=== PATIENT | male | born 1980 | race African-American/Black ===

== ENCOUNTER 2016-04-08 10:52 | Emergency (ER) | payer OTHER ==
--- NOTE | ~2016-04-08 | US113 ---
[facility] A Service of [facility] RADIOLOGY TEXT RESULTS PATIENT: BRIEN HOLM LOCATION: CFTX : 82 UNIT #: [id number] AGE: [address]: Conchita Pompa APRN SEX: M ORDER DR: [id number] [facility] [address] [place], [place] [address] [id number] E MR#: [id number] Acc #: [id number] NAME: BRIEN HOLM : 1980 SEX: M STUDY DATE/TIME: 04/08/2016 11:07 UNIT: [facility] ROOM: STUDY DESCRIPTION: US Scrotal Duplex Complete Attending Physician: Conchita Pompa A.P.R.N. Ordering Physician: Ed Farshad Carter M.D. Primary Care Physician: No Primary Care Physician MEDICAL IMAGING REPORT This report is preliminary unless electronic signature is present EXAM Bilateral scrotal ultrasound with Doppler imaging. DATE 04/08/2016 at 11:07 HISTORY Left testicular pain for 2 weeks after lifting weights. COMPARISON Bilateral scrotal ultrasound with Doppler imaging 06/15/2012. FINDINGS The right testicle measures 4.8 x 2.9 x 1.3 cm. The left testicle measures 3.5 x 2.0 x 4.7 cm. Extensive bilateral testicular microlithiasis is redemonstrated with small bilateral intratesticular cysts measuring less than 5 mm. No suspicious solid testicular mass is identified. Normal color flow is documented to each testicle. Small bilateral scrotal hydroceles are present. Previously described small left scrotal varicocele is not evident on this examination. Probable tiny left epididymal cyst or spermatocele measures 2 mm. IMPRESSION 1. Small bilateral scrotal hydroceles. No varicocele is seen on today's examination. 2. Extensive bilateral testicular microlithiasis and multiple small less than 5 mm intratesticular cysts. The features of testicular microlithiasis are thought to be similar to the 2013 examination. No testicular mass lesion is seen. 3. Probable 2 mm left epididymal cyst or spermatocele. [facility] A Service of [facility] RADIOLOGY TEXT RESULTS PATIENT: BRIEN HOLM LOCATION: [facility] : 82 UNIT #: [id number] AGE: [address]: Conchita Pompa APRN SEX: M ORDER DR: Dictated by... Nela Chapa M.D. THIS IS AN ELECTRONICALLY VERIFIED REPORT Nela Chapa M.D. at 04/10/2016 7:02 PM [facility]/javier TD: 04/08/2016 14:58 JOB #: [id number] MEDICAL IMAGING REPORT COPY
[~2016-04-08 10:52] MED LIST: ALBUTEROL17 GM INH; ANUSOL SUPP1 SUPP PR; CIPRO250 MG PO; FLEXERIL10 MG PO; KEFLEX500 MG PO; LORTAB 5/500 TA1 TA1 PO; MOTRIN400 MG PO; NUPERCAINAL 1%30 GM EXT; ORUDIS75 M1 PO; PREDNISONE PO; TESSALON200 MG PO; VICODIN 5/1 TAB 5/50 PO; VOLTAREN75 MG PO
[2016-04-08 11:02] LABS: URINE SOURCE CLEAN CATCH
[2016-04-08 11:06] LABS: URINE APPEARANCE CLEAR; URINE BILIRUBIN NEG (NEG); URINE BLOOD NEG (NEG); URINE COLOR YELLOW; URINE GLUCOSE NEG (NEG); URINE KETONE NEG (NEG); URINE LEUKOCYTE ESTERASE NEG (NEG); URINE NITRATE NEG (NEG); URINE PH 6.5 (5-8); URINE PROTEIN NEG (NEG); URINE SPECIFIC GRAVITY 1.023 (1.003-1.035); URINE UROBILINOGEN 0.2 MG/DL (NEG)
[2016-04-08 11:17] LABS: CULTURE INDICATED? NO; URINE TRICHOMONAS NEGATIVE
[2016-04-12 16:17] LABS: CHLAMYDIA TRACH Not Detected (Not Detected); N GONOR Not Detected (Not Detected)
== END 2016-04-08 13:17 | disposition home or self-care (01) ==
LOC: CFTX 10:52
PROVIDERS: Nurse Practitioner
DX: N50.812 Left testicular pain (principal); J45.909 Unspecified asthma, uncomplicated; F17.210 Nicotine dependence, cigarettes, uncomplicated; Z98.890 Other specified postprocedural states
CPT/HCPCS: 81003; 87491; 87591; 93975; 99284

== ENCOUNTER 2016-08-27 22:30 | Emergency (ER) | payer OTHER ==
[2016-08-28 05:28] LABS: ACETAMINOPHEN <10 ug/mL; ALCOHOL BLOOD <5 mg/dL ([0,])
== END 2016-08-29 13:39 ==
LOC: CED 22:30
PROVIDERS: Emergency Medicine
DX: S61.512A Laceration without foreign body of left wrist, initial encounter (principal); R45.851 Suicidal ideations; Z23 Encounter for immunization; W26.0XXA Contact with knife, initial encounter; Y92.9 Unspecified place or not applicable
CPT/HCPCS: 12004; 90471; 90715; 99285; G0480

== ENCOUNTER 2016-08-28 | Inpatient (IN) | payer OTHER ==
[~2016-08-28] VITALS: Ht 185.4 cm; Wt 81.6 kg
--- NOTE | ~2016-08-28 | HP ---
Unit #: [id number] #: [id number] Patient: BRIEN HOLM [id number] [facility] [address] [place] [address] [id number] I MR#: [id number] NAME: BRIEN HOLM ROOM: P204 Age: 36 Sex: M Admission Date: 08/28/2016 : 1980 Attending Physician: Timothy Gunn M.D. Admitting Physician: Timothy Gunn M.D. Primary Care Physician: Primary Care Physician No HISTORY AND PHYSICAL HISTORY AND PHYSICAL COMPLETED 08/29/2016 HISTORY OF PRESENT ILLNESS Brien is a 36-year-old male, admitted on 08/28/[address] [place] [address] for attempted suicide. He cut his wrist. PAST MEDICAL HISTORY Asthma. PAST SURGICAL HISTORY Left shoulder dislocation with a surgical repair. SOCIAL HISTORY He smokes one and one half packs of cigarettes daily. History of alcohol use and history of illegal drug use. He is currently single and living alone. FAMILY HISTORY Noncontributory. REVIEW OF SYSTEMS CONSTITUTIONAL: No fever or chills. HEENT: Denies any sore throat, ear pain or runny nose. CARDIOVASCULAR: Denies chest pain, irregular heart rhythm or palpitations. CHEST: Shortness of air with exertion and wheezing. GASTROINTESTINAL: Denies nausea, vomiting, diarrhea or chronic constipation. ENDOCRINE: Denies history of increased thirst or urination. No recent significant weight loss or gain. GENITOURINARY: Denies dysuria, frequency, or hematuria. SKIN: Denies any rashes. HEMATOLOGIC: Denies history of increased bleeding or bruising. MUSCULOSKELETAL: Denies any hot, swollen joints. No generalized muscle pain. NEUROLOGIC: Denies problems with vision or speech. No frequent, severe headaches. No numbness, tingling or weakness in any extremities. Denies loss of bladder or bowel control. CURRENT MEDICATIONS None. ALLERGIES Unit #: [id number] #: [id number] Patient: BRIEN HOLM None. PHYSICAL EXAMINATION GENERAL: Alert, oriented, and in no acute distress. VITAL SIGNS: Blood pressure 167/93, heart rate 81. HEIGHT: 6 feet 1 inch. WEIGHT: 235 pounds. SKIN: Warm and dry without rash or lesion. HEENT: Normocephalic. TMs not viewed. Oral and nasal passages clear. Conjunctivae clear. PERRLA. EOMs intact. NECK: Supple without lymphadenopathy or thyromegaly. HEART: Regular rate and rhythm without murmur. LUNGS: Wheezing in all lobes. ABDOMEN: Soft, nontender. : Not done. EXTREMITIES: No evidence of cyanosis, clubbing or edema. Moves all without focal deficit. NEUROLOGICAL: Grossly within normal limits. Cranial Nerves: II: Visual baum are intact. III, IV AND : Extraocular movements are intact. Pupils are equal, round and reactive to light. V: Facial sensation is grossly normal. VII: Facial movements and expression are normal. VIII: Auditory acuity grossly intact. IX, X: Uvula is midline. Phonation is normal. XI: Patient shrugs shoulders and turns head normally. XII: Tongue protrudes in the midline. Sensory and Motor Function: Sensory and motor sensation is grossly normal. Motor: moves all extremities well. Coordination: Gait is normal. Deep Tendon Reflexes: Intact. IMPRESSION 1. Psychiatric admission. 2. Asthma. RECOMMENDATIONS Psychiatric, per psychiatrist. MEDICAL No contraindications to participating in facility's activities. MEDICAL PROGNOSIS Good. MEDICAL CONDITION Stable. Dictated by... Faizan Herzog TD: 08/29/2016 11:59 JOB #: [id number] Unit #: [id number] #: [id number] Patient: BRIEN HOLM HISTORY AND PHYSICAL Page 1 of 1 X TODD KENNEDY APRN X HISTORY AND PHYSICAL
--- NOTE | ~2016-08-28 | DS ---
Unit #: [id number] #: [id number] Patient: BRIEN ROTH [id number] [facility] [address] [place] [address] [id number] I MR#: [id number] NAME: BRIEN ROTH ROOM: P204 Age: 36 Sex: M Admission Date: 08/28/2016 : 1980 Discharge Date: 08/29/2016 Attending Physician: Timothy Gunn M.D. Primary Care Physician: Primary Care Physician No DISCHARGE SUMMARY REASON FOR ADMISSION Mr. Roth is a 36-year-old man, whose family stated that he was intoxicated and cut his wrist during an argument with a family member on the phone. The patient claims to cut his wrist. Says he "put a knife in the sink" and adamantly denied suicidal ideation, intent, or plan. After he was medically treated in the emergency room, [facility] was [facility]. LABORATORY DATA Please see hospital chart. HOSPITAL COURSE Mr. Hurst was admitted overnight and placed on suicide precautions. After full psychiatric interview was conducted, he adamantly denied suicidal ideation, intent, or plan and appeared to be in the euthymic mood, with no need for treatment. He appeared to have completely sobered up from his intoxicated episode. He was able to contract for safety and was discharged in stable condition with no further need for psychiatric treatment. DISCHARGE DIAGNOSIS AXIS I: Alcohol abuse with mood disturbance, F15.04. AXIS II: No diagnosis. AXIS III: History of asthma, recent self-inflicted lacerations. AXIS IV: AXIS V: DISCHARGE INSTRUCTIONS Follow up with primary care physician. DISCHARGE MEDICATIONS None. CONDITION AT DISCHARGE Fair. PROGNOSIS Fair. DIET AND ACTIVITY Ad samantha. Unit #: [id number] #: [id number] Patient: BRIEN ROTH Dictated by... Jacquelyn Ortiz/[place] TD: 08/29/2016 18:43 JOB #: [id number] DISCHARGE SUMMARY Page 1 of 1 X Timothy Gunn MD X DISCHARGE SUMMARY
--- NOTE | ~2016-08-28 | PA ---
Unit #: [id number] #: [id number] Patient: BRIEN HOLM [id number] [facility] [address] [place] [address] [id number] MR#: [id number] NAME: BRIEN HOLM ROOM: P204 Age: 36 Sex: M Admission Date: 08/28/2016 : 1980 Date of Assessment: Attending Physician: Timothy Gunn M.D. Admitting Physician: Timothy Gunn M.D. Primary Care Physician: Primary Care Physician No PSYCHIATRIC ASSESSMENT DATE OF ASSESSMENT 08/29/2016. INFORMANTS Patient, reliable; [facility], reliable; [facility], reliable. CHIEF COMPLAINT "Suicidal thoughts." HISTORY OF PRESENT ILLNESS Mr. Hurst is a 36-year-old man, who presented to [facility] with lacerations in his left wrist. The family told in the emergency room that the patient was trying to harm himself, but the patient reported that he was intoxicated and was angry at someone on the phone that he was having an argument with. He claims that he was trying to put a knife in the sink and "slipped and cut him." He adamantly denied suicidal ideation, but was placed on a 72-hour hold by emergency room doctor and sent to [facility] for [facility]. PAST PSYCHIATRIC HISTORY No previous inpatient or outpatient psychiatric treatment. FAMILY PSYCHIATRIC HISTORY No reported family history of mental illness or substance abuse. SOCIAL HISTORY The patient denied a history of physical, sexual or emotional abuse or neglect. He is a single, heterosexual man, with a current partner. 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 PAST MEDICAL HISTORY Significant for asthma that has not been active for some time. MEDICATIONS None currently. ALLERGIES No known medication allergies. SUBSTANCE USE HISTORY The patient states that he does not drink or use regularly, but had "a Unit #: [id number] #: [id number] Patient: BRIEN HOLM couple of shots" the night of his self-inflicted lacerations. MENTAL STATUS EXAMINATION The patient presented as a neatly dressed and groomed man, who appeared his stated age. He was pleasant and cooperative with the examination. His speech was spontaneous and easily understood. Musculoskeletal examination was calm. His mood was euthymic with a congruent affect. He was alert and fully oriented. His memory and concentration were fair to good. His thought processes were goal directed with no active psychosis. He adamantly denied suicidal ideation, intent, or plan. Contract for safety outside of the hospital. Insight and judgment were fair. Fund of knowledge and abstraction were intact. ASSETS AND LIABILITIES The patient is healthy, voluntary, unemployed. Liabilities include recent alcohol use and family conflict. ADMITTING DIAGNOSES AXIS I: Alcohol abuse with mood disturbance, F15.04. AXIS II: No diagnosis. AXIS III: History of asthma, recent self-inflicted wrist cut. AXIS IV: AXIS V: PSYCHIATRIC PLAN The patient was admitted overnight and placed on suicide precautions. On the morning of my initial assessment, he denied any suicidal ideation, intent, or plan at anytime and stated that he was safe to leave the hospital. After further evaluation and review of his records, he was deemed to give an adequate contract for safety and therefore referred back to outpatient care from his primary care physician. Dictated by... Timothy Gunn M.D. [facility]/[place] TD: 08/30/2016 02:02 JOB #: [id number] PSYCHIATRIC ASSESSMENT Page 1 of 1 X Timothy Gunn MD PSYCHIATRIC ASSESSMENT
[2016-08-29 09:46] LABS: BASOPHIL% 0.5 % (0-2.5); EOSINOPHIL# 0.4 X10e3 (0-0.7); EOSINOPHIL% 7.5 % (0.0-7.0); HEMATOCRIT 48.6 % (38.0-50.0); LYMPHOCYTE# 1.1 X10e3 (1.0-3.5); LYMPHOCYTE% 18.1 % (17.0-45.0); MEAN CELL VOLUME 92.1 FL (83-96); MEAN CORPUSCULAR HEMOGLOBIN 30.4 PG (28-34); MEAN PLATELET VOLUME 9.9 FL (6.5-11.5); MONOCYTE# 0.5 X10e3 (0-1.0); MONOCYTE% 9.1 % (3.0-12.0); NEUTROPHIL# 3.9 X10e3 (1.5-7.1); NEUTROPHIL% 64.8 % (40-75); PLATELET COUNT 205 X10e3 (140-420); RED BLOOD COUNT 5.28 X10e (3.90-5.60); RED CELL DISTRIBUTION WIDTH 13.6 % (11.0-15.5)
[2016-08-29 09:53] LABS: DIFF IND NO
[2016-08-29 10:27] LABS: BILIRUBIN,TOTAL 0.9 mg/dL (0.2-2.0); BUN/CREATININE RATIO 12.72; CALCIUM SERUM 9.3 mg/dL (8.4-10.2); CREATININE SERUM 1.1 mg/dL (0.6-1.4); POTASSIUM 4.3 mmol/L (3.5-5.1); PROTEIN TOTAL SERUM 6.6 g/dL (6.0-8.3)
== END 2016-08-29 12:51 | DRG 897 ==
LOC: P2S 15:00
PROVIDERS: Psychiatry & Neurology Psychiatry
DX: F10.14 Alcohol abuse with alcohol-induced mood disorder (principal); F17.210 Nicotine dependence, cigarettes, uncomplicated; J45.909 Unspecified asthma, uncomplicated; Z56.0 Unemployment, unspecified
CPT/HCPCS: 80053; 85025

== ENCOUNTER 2016-10-02 13:36 | Emergency (ER) | payer OTHER ==
[~2016-10-02] VITALS: Ht 185.4 cm; Wt 106.6 kg
[2016-10-02 15:12] LABS: URINE SOURCE CLEAN CATCH
[2016-10-02 15:16] LABS: URINE APPEARANCE CLEAR; URINE BILIRUBIN NEG (NEG); URINE BLOOD NEG (NEG); URINE COLOR DK YELLOW; URINE GLUCOSE NEG (NEG); URINE KETONE TRACE (NEG); URINE LEUKOCYTE ESTERASE TRACE (NEG); URINE NITRATE NEG (NEG); URINE PROTEIN NEG (NEG); URINE SPECIFIC GRAVITY 1.031 (1.003-1.035)
[2016-10-02 15:19] LABS: URBCS1 AUWI 0-2 /[HPF] (0-2); URINE BACTERIA AUWI NEG (NEGATIVE); URINE SQUAMOUS EPITHELIAL CELL NONE SEEN /[HPF]; UWBCS1 AUWI 0-2 (0-5)
[2016-10-02 15:20] LABS: CULTURE INDICATED? NO
[2016-10-04 23:43] LABS: CHLAMYDIA TRACH Not Detected (Not Detected); N GONOR Not Detected (Not Detected)
== END 2016-10-02 15:50 | disposition home or self-care (01) ==
LOC: CED 13:36 → CFTX 13:36
PROVIDERS: Physician Assistant
DX: N50.812 Left testicular pain (principal); G89.4 Chronic pain syndrome; J45.909 Unspecified asthma, uncomplicated; R30.0 Dysuria; R03.0 Elevated blood-pressure reading, without diagnosis of hypertension; F17.210 Nicotine dependence, cigarettes, uncomplicated
CPT/HCPCS: 81003; 87491; 87591; 94640; 96372; 99284; J0696

== ENCOUNTER 2016-10-04 08:55 | Emergency (ER) | payer OTHER ==
[~2016-10-04] VITALS: Ht 185.4 cm; Wt 106.6 kg
--- NOTE | ~2016-10-04 | CR63 ---
[facility] A Service of [facility] RADIOLOGY TEXT RESULTS PATIENT: BRIEN HOLM LOCATION: [place] : [birth year] UNIT #: [id number] AGE: [address]: KATARZYNA WELCH SEX: M ORDER DR: [id number] [facility] [address] [place], [place] [address] [id number] MR#: [id number] Acc #: [id number] NAME: BRIEN HOLM : 1980 SEX: M STUDY DATE/TIME: 10/04/2016 9:53 UNIT: [facility] ROOM: STUDY DESCRIPTION: CR Chest 2 View Attending Physician: Katarzyna Welch Aprn Ordering Physician: Katarzyna Welch Aprn Primary Care Physician: Primary Care Physician No MEDICAL IMAGING REPORT This report is preliminary unless electronic signature is present EXAM PA and lateral chest HISTORY Cough, congestion, pain in chest. FINDINGS A PA and lateral view of the chest were obtained. The heart size and vascularity are normal. The lungs are clear and the bones are unremarkable. IMPRESSION No active disease. Dictated by... Noel Wagner M.D. THIS IS AN ELECTRONICALLY VERIFIED REPORT Noel Wagner M.D. at 10/04/2016 12:43 PM MIKAELA/kacie TD: 10/04/2016 12:29 JOB #: [id number] MEDICAL IMAGING REPORT Page 1 of 1 COPY
== END 2016-10-04 10:48 | disposition home or self-care (01) ==
LOC: CFTX 08:55 → CED 08:55 → CFTX 09:47
DX: J06.9 Acute upper respiratory infection, unspecified (principal); J45.909 Unspecified asthma, uncomplicated; F17.210 Nicotine dependence, cigarettes, uncomplicated; Z98.890 Other specified postprocedural states
CPT/HCPCS: 71020; 94640; 99285

== ENCOUNTER 2016-10-24 19:23 | Emergency (ER) | payer OTHER ==
[2016-10-24 21:52] LABS: URINE APPEARANCE CLEAR; URINE BILIRUBIN NEG (NEG); URINE BLOOD NEG (NEG); URINE COLOR YELLOW; URINE GLUCOSE NEG (NEG); URINE KETONE TRACE (NEG); URINE LEUKOCYTE ESTERASE NEG (NEG); URINE NITRATE NEG (NEG); URINE PH 5.5 (5-8); URINE PROTEIN NEG (NEG); URINE SPECIFIC GRAVITY 1.034 (1.003-1.035)
[2016-10-24 22:01] LABS: CULTURE INDICATED? NO
[2016-10-27 04:56] LABS: CHLAMYDIA TRACH Not Detected (Not Detected); N GONOR Not Detected (Not Detected)
== END 2016-10-24 22:41 | disposition home or self-care (01) ==
LOC: CED 19:23 → CFTX 19:23
PROVIDERS: Nurse Practitioner Family
DX: N34.2 Other urethritis (principal); J45.909 Unspecified asthma, uncomplicated; F17.210 Nicotine dependence, cigarettes, uncomplicated
CPT/HCPCS: 81003; 87491; 87591; 96372; 99283; J0696